=== PATIENT | female | born 1965 | race Caucasian/White ===

== ENCOUNTER 2017-10-18 03:00 | Emergency (ER) | payer OTHER ==
[2017-10-18 03:04] VITALS: BP 113/81
--- NOTE | 2017-10-18 03:04 | ER Report ---
History and Physical Time Seen By MD: 03:03 HPI/ROS CHIEF COMPLAINT: Low back pain HISTORY OF PRESENT ILLNESS: 52-year-old female without a history of back problems. Noted that she injured her back approximately 3 days ago while dusting. She notes a twisting motion and a sudden onset of a pain in her right lower back. Patient again was doing something yesterday and aggravated her back even worse. Tonight she is unable to sleep. She is unable to sit on the bed for the examination without severe lower back pain. She notes no radiation to her lower extremity's. She notes no incontinence. She denies fever or chills. Patient denies dysuria or hematuria. Patient took a tramadol last night without relief of pain. REVIEW OF SYSTEMS: Respiratory: No cough, no dyspnea. Cardiovascular: No chest pain, no palpitations. Gastrointestinal: No vomiting, no abdominal pain. Musculoskeletal: As above Allergies: Coded Allergies: No Known Drug Allergies (Unverified , 10/18/17) Home Meds Active Scripts Methocarbamol (ROBAXIN-750) 750 Mg Tablet, 1 TAB PO TID Y for muscle spasm relief, #20 Prov:TRENT REES DO 10/18/17 Hydrocodone Bit/Acetaminophen (NORCO 5-325 TABLET) 1 Each Tablet, 1-2 EACH PO Q4H Y for PAIN, #12 TAB Prov:TRENT REES DO 10/18/17 Reported Medications Lisinopril/Hydrochlorothiazide (LISINOPRIL-HCTZ 10-12.5 MG TAB) 1 Each Tablet, 1 EACH PO QDAY 10/18/17 Levothyroxine Sodium (SYNTHROID) 75 Mcg Tablet, 75 MCG PO QDAY 10/18/17 Tramadol Hcl (TRAMADOL HCL) 50 Mg Tablet, 50 MG PO Q4-6H, TAB 10/18/17 Gabapentin (GABAPENTIN) 300 Mg Capsule, 1200 MG PO BID, CAPSULE 10/18/17 Past Medical/Surgical History Hypertension, hypothyroidism, chronic pain Reviewed Nurses Notes: Yes Old Medical Records Reviewed: Yes Constitutional Vital Sign - Last 24 Hours 10/18/17 03:04 Temp 97.9 Pulse 85 Resp 16 B/P (MAP) 113/81 Pulse Ox 92 O2 Delivery Room Air Physical Exam General Appearance: The patient is alert, has no immediate need for airway protection and no current signs of toxicity. Vital signs stable, afebrile, pulse ox normal, moderate distress Eyes: Pupils equal and round no injection. Respiratory: Chest is non tender, lungs are clear to auscultation. Cardiac: regular rate and rhythm Gastrointestinal: Abdomen is soft and non tender, no masses, bowel sounds normal. Musculoskeletal: Neck: Neck is supple and non tender. Back: There is no tenderness on palpation of the midline. There is no tenderness on palpation of the SI joints. There is moderate muscular tenderness in the right lower lumbar paraspinous muscles, no CVA tenderness Extremities have full range of motion and are non tender. Negative straight- leg raise bilaterally, DTRs 2 over 4 and equal bilaterally Skin: No rashes or lesions. DIFFERENTIAL DIAGNOSIS: After history and physical exam differential diagnosis was considered for back pain including but not limited to muscular pain, herniated disc, spine fracture, intra-abdominal causes and urinary tract infection. Medical Decision Making ED Course/Re-evaluation ED Course Patient was admitted to an examination room. H&P was done. The differential diagnoses was considered. Patient with acute lower back pain. She's been unable to sleep despite tramadol. Patient has no radiation of symptoms to her lower loo remedies. She has no incontinence. She has negative straight leg raise on examination. Patient has clinical lumbar strain. She'll be treated conservatively with hydrocodone and Robaxin. She is advised ibuprofen at 600 mg 3 times daily. Patient advised to follow-up with primary care if unimproved in 3-5 days. Decision to Disposition Date: Oct 18, 2017 Decision to Disposition Time: 03:19 Depart Departure Latest Vital Signs Vital Signs Date Time Temp Pulse Resp B/P (MAP) Pulse Ox O2 Delivery O2 Flow Rate FiO2 10/18/17 03:04 97.9 85 16 113/81 92 Room Air Impression: Primary Impression: Lumbosacral strain Condition: Improved Referrals: ANDER BENSON MD (PCP) New Scripts Methocarbamol (ROBAXIN-750) 750 Mg Tablet 1 TAB PO TID Y for muscle spasm relief, #20 Prov: TRENT REES DO 10/18/17 Hydrocodone Bit/Acetaminophen (NORCO 5-325 TABLET) 1 Each Tablet 1-2 EACH PO Q4H Y for PAIN, #12 TAB Prov: TRENT REES DO 10/18/17 Patient Instructions: Low Back Strain (ED) Additional Instructions: Take ibuprofen 200 mg 3-4 tablets 3 times a day with food Apply ice or heat to your back to alleviate his symptoms Follow-up with your primary care physician if unimproved in 3-5 days Problem Qualifiers Primary Impression: Lumbosacral strain Encounter type: initial encounter Qualified Codes: S39.012A - Strain of muscle, fascia and tendon of lower back, initial encounter TRENT REES DO Oct 18, 2017 03:04
[2017-10-18] MEDS ORDERED: LEVO75TA68 PO (03:10)
[2017-10-18] MEDS ORDERED: TRAM-420 PO (03:10)
[2017-10-18] MEDS ORDERED: GABA-549 PO (03:10)
[2017-10-18] MEDS ORDERED: LISI-351 PO (03:10)
[2017-10-18] MEDS ORDERED: ACET/HYDROC 5/325MG TH ER ONLY 2 TAB/BOTTLE PO ONE (03:20)
[2017-10-18] MEDS ORDERED: METHOCARBAMOL 500 MG TAB PO ONE (03:20)
[2017-10-18] MEDS ORDERED: APAP/HYDROCODONE 325/5 TAB PO ONE (03:20)
[2017-10-18] MEDS ORDERED: METH-543 PO (03:21)
[2017-10-18] MEDS ORDERED: HYDR-4309 PO (03:21)
== END 2017-10-18 03:41 | disposition home or self-care (01) ==
LOC: ER 03:16
DX: S39.012A Strain of muscle, fascia and tendon of lower back, initial encounter (principal)
CPT/HCPCS: 99283

== ENCOUNTER → 2017-12-02 | Outpatient (CLI) | payer OTHER ==
[~2017-12-02] MED LIST: GABA-549 PO; HYDR-4309 PO; LEVO75TA68 PO; LISI-351 PO; METH-543 PO; TRAM-420 PO
--- NOTE | 2017-12-02 17:13 | RADIOLOGY IMAGING REPORT ---
FAC[place] [facility] [place]IENT NAME: VIELKA MORRISSEY : [id number] MR: [id number] V: [id number] EXAM DATE: [id number] ORDERING PHYSICIAN: ANDER BENSON TECHNOLOGIST: Ghada Desai PROCEDURE:BILATERAL DIGITAL SCREENING MAMMOGRAM WITH CAD ASSISTED INTERPRETATION & 3D TOMOSYNTHESIS COMPARISON:Prior mammograms 11/05/16, 05/22/15, 08/05/13, 05/17/12. INDICATIONS:SCREENING FINDINGS: Small amount of fibroglandular tissue is seen throughout the breasts. The parenchymal pattern has remained stable allowing for difference in mammographic technique & patient positioning. There is no evidence of malignant appearing mass, malignant appearing calcifications or other secondary sign of malignancy in either breast. DIAGNOSTIC CATEGORY 1--NEGATIVE. RECOMMENDATIONS: ROUTINE MAMMOGRAM AND CLINICAL EVALUATION. IMPRESSION: BIRADS 1: Negative. No significant abnormality is seen. Dictated by: Cyn Pope M.D. on 12/02/2017 at 15:41 Transcribed by: BLAYNE on 12/02/2017 at 15:47 Approved by: Cyn Pope M.D. on 12/02/2017 at 17:12 [facility]
== END ==
LOC: MAMO 02:07
PROVIDERS: ATTEND Obstetrics & Gynecology
DX: Z12.31 Encounter for screening mammogram for malignant neoplasm of breast (principal)
CPT/HCPCS: 77063; 77067

== ENCOUNTER 2017-12-31 00:17 | Day surgery (SDC) | payer OTHER ==
[~2017-12-31] VITALS: Ht 167.6 cm; Wt 81.6 kg
[2017-12-31] MEDS ORDERED: NORMOSOL R SOLN(*) 1000 ML BAG 1,000 ML IV PRN (13:50)
[2017-12-31] MEDS ORDERED: LIDOCAINE/SOD BICARB 8.4% SYR ID ONE (13:50)
[2017-12-31 14:05] VITALS: BP 127/94
[2017-12-31] MEDS ORDERED: PROPOFOL EMUL(*) 10MG/ML 20 ML 60 ML ONE (16:40)
[2017-12-31 16:58] VITALS: BP 103/56
[2017-12-31 17:15] VITALS: BP 116/77
[2017-12-31 17:27] VITALS: BP 119/78
[2017-12-31 17:29] VITALS: BP 121/98
== END 2017-12-31 17:50 | disposition home or self-care (01) ==
LOC: OR 00:17
PROVIDERS: ATTEND Internal Medicine Gastroenterology
DX: Z12.11 Encounter for screening for malignant neoplasm of colon (principal); K64.8 Other hemorrhoids; K57.30 Diverticulosis of large intestine without perforation or abscess without bleeding
CPT/HCPCS: 00812; 43239; 43248; 45378; 81025; 88305; 88313; 88344; C1769; J2704

== ENCOUNTER → 2018-04-22 | Outpatient (CLI) | payer OTHER ==
[~2018-04-22] MED LIST changes: -HYDR-4309 PO; +HYDR-653 PO
--- NOTE | 2018-04-22 13:15 | RADIOLOGY IMAGING REPORT ---
[place]AC[place] [facility] [place]IENT NAME: Bria Plunkett : 1965 MR: [id number] V: [id number] EXAM DATE: ORDERING PHYSICIAN: [facility] TECHNOLOGIST: Location: [facility] - [place] Patient: Bria Plunkett : 1965 Visit/Account:[id number] Date of Sevice: 04/22/2018 XR HAND 3 VIEWS/MORE HISTORY: Hand and wrist pain bilaterally. Three-view examination three-view examination of both hands. FINDINGS: Study demonstrates no acute bony pathology within either hand. Joint spaces well-maintained with no joint space narrowing. Soft tissues unremarkable. IMPRESSION: 1. Negative bilateral hands for acute bony pathology or any DJD of any significance. Report Dictated By: Tristan Vaz MD at 04/22/2018 12:57 PM Report E-Signed By: Tristan Vaz MD at 04/22/2018 1:10 PM WSN:[email or web address]
--- NOTE | 2018-04-22 14:39 | RADIOLOGY IMAGING REPORT ---
FACILITY: [facility] - [place] PATIENT NAME: Bria Plunkett : 1965 MR: [id number] V: [id number] EXAM DATE: ORDERING PHYSICIAN: [facility] TECHNOLOGIST: Location: [facility] [place] Patient: Bria Plunkett : 1965 Visit/Account:[id number] Date of Sevice: 04/22/2018 Exam type: XR BILATERAL WRIST 3 OR MORE VIEWS History: Hand wrist pain bilaterally with tingling Comparison: Bilateral hand series performed today. Findings: Three views of both wrists were submitted. There is no evidence of acute fracture dislocation or sig nificant arthritic change involving either wrist. No radiopaque soft tissue foreign body seen IMPRESSION: 1. No significant osteoarticular abnormality of either wrist identified Report Dictated By: Cyn Pope MD at 04/22/2018 2:33 PM Report E-Signed By: Cyn Pope MD at 04/22/2018 2:35 PM WSN:[email or web address]
== END ==
LOC: RAD 11:54
PROVIDERS: ATTEND Otolaryngology
DX: M25.531 Pain in right wrist (principal); M25.532 Pain in left wrist; M25.541 Pain in joints of right hand; M25.542 Pain in joints of left hand

== ENCOUNTER 2018-05-20 09:00 | Outpatient (RCR) | payer OTHER ==
--- NOTE | 2018-04-30 09:41 | PT INITIAL EVALUATION ---
MEDICAL DIAGNOSIS: Cubital tunnel syndrome, carpal tunnel syndrome TREATMENT DIAGNOSIS: Same DATE OF ONSET: 09/28/15 SUBJECTIVE: Bria Plunkett presents to PT for B cubital tunnel and carpal tunnel syndromes, insidious onset 2.5 years ago. She's right-handed. 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 Pain location is B palms and volar fingers and described as burning, pins and needles. Pain scale is 5 on a ten point pain scale. Pain is worse with cold, wrist flexion while sleeping, prolonged typing and better with heat. REHAB PROBLEM LIST: Increased Pain, Decreased Function, Nerve gliding, Decreased Joint Mobility PREVIOUS MEDICAL HISTORY: Hypothyroidism, jaw surgery, CPAP OCCUPATION: [employer] student, home health care worker. OBJECTIVE: Posture: Mild forward head posture. ROM: UE's AROM WNL. Cervical AROM 75% rotation B, 50% SB B, flexion 75% and extension 75%, no paresthesia. Strength: Drupal Architect strength, second slot Deniz dynamometer 35, 30, 28#, L 25# x3. Palpation: Painful R supinator, tight myofascial component R>L UE/s, cervical region. Sensation: Moclips-Andriy monofilament sensation test: R volar hand "H" 4.08, L "G" 3.84, both reduced protective sensation. Special Tests: Positive median and ulnar nerve ULTT B. DTR's UE's 1/3 B. Phalen's test negative R, positive L, Tinel tap at the carpal and cubital tunnels negative R, L cubital, mild median nerve symptoms with L carpal tunnel tap. Mobility: R wrist proximal carpal row is anterior. ASSESSMENT: Bria Plunkett presents wtih cubital and carpal tunnel symptoms as well positive ULTT. She had less paresthesia after nerve gliding manual therapy. Short Term Goals One month: No hand paresthesia at night. Two months: No hand paresthesia with all ADL's. Patient's Goals No hand pain 20/10. PLAN: Patient to be seen for Manual Therapy/STM/MET, Strengthening/condition, Ice/Heat, Stretching, Neuromuscular Re-ed, Electrical Stim, Home Exercise Program 2x/Week for 2 Months Thank you for this referral. If you have any questions, comments, or concerns about this report or plan, please contact me at . MTDD
--- NOTE | 2018-05-21 12:23 | PT PLAN OF CARE ---
Physician: Dr. Radames Koch III Patient is being seen: 2x/week Therapist: Pratima Linton, PT Medical Diagnosis: Cubital tunnel syndrome, carpal tunnel syndrome Treatment Diagnosis: Same Date of Onset: 09/28/15 Date of Initial Evaluation: 04/30/18 Date patient was last seen: 05/20/18 Number of treatments: 7 Number of cancellations/No shows: 0 INTERVENTIONS: Manual Therapy, Strengthening, Stretching, Home Exercise Program GOALS: Not met: One month: No hand paresthesia at night. Two months: No hand paresthesia with all ADL's. PATIENT'S GOAL: No hand pain 20/10. Not met Patient Compliance: Excellent Prognosis: Excellent Reasons for discontinuing therapy: S: Bria called today and discharged herself from PT. She had paresthesia relief after PT sessions, but it didn't last. O: No sensation or crime specialist strength test because of self-discharge. HEP: Bria has a nerve gliding, stretching HEP. A/P: Bria Plunkett didn't get lasting results with her PT after 7 sessions. Per her request, I'll DC PT. Thank you. MELISSA
== END 2018-05-20 18:00 | disposition home or self-care (01) ==
LOC: PT 09:00
PROVIDERS: ATTEND Otolaryngology
DX: G56.03 Carpal tunnel syndrome, bilateral upper limbs (principal); E03.9 Hypothyroidism, unspecified
CPT/HCPCS: 97161

== ENCOUNTER → 2018-09-03 | Outpatient (CLI) | payer OTHER ==
--- NOTE | 2018-09-03 13:09 | EKG ---
FACILITY: PATIENT NAME: VIELKA MORRISSEY : [id number] MR: [id number] V: [id number] EXAM DATE: ORDERING PHYSICIAN: JOSE F WALL TECHNOLOGIST: Test Reason : Pre-op Blood Pressure : / mmHG Vent. Rate : 067 BPM Atrial Rate : 067 BPM P-R Int : 138 ms QRS Dur : 092 ms QT Int : 406 ms P-R-T Axes : 060 052 067 degrees QTc Int : 429 ms Normal sinus rhythm Normal ECG No previous ECGs available Confirmed by JOSE F GARCIA ([id number]) on 09/03/2018 4:02:11 PM Referred By: Confirmed By:JOSE F GARCIA
== END ==
LOC: RESP 12:25
PROVIDERS: ATTEND Anesthesiology
DX: Z01.810 Encounter for preprocedural cardiovascular examination (principal); G56.01 Carpal tunnel syndrome, right upper limb
CPT/HCPCS: 93005